=== PATIENT | female | born 1975 | race Caucasian/White ===

== ENCOUNTER 2016-06-16 11:05 | Emergency (ER) | payer BC ==
[~2016-06-16] VITALS: Wt 54.0 kg
[~2016-06-16 11:05] MED LIST: DIAZ-90 PO; NAPR-260 PO
--- NOTE | 2016-06-16 13:07 | ERA ---
ER Documentation Chief Complaint Date/Time DATE: 06/16/16 TIME: 13:07 Chief Complaint HEADACHE NAUSEA AND VOMITING SINCE LAST NIGHT. NO NEURO DEFICIT HPI The patient is a 41-year-old female, presenting to the ER because of abdominal pain, 8, localized at the left upper quadrant, associated with nausea and vomiting. She recently finished antibiotic for acute cystitis. She also complains of intermittent headache for the last 2 days that was relieved with Excedrin. He denies fever, chills, neck pain, chest pain, dyspnea, diarrhea or constipation. She complains of cough and intermittent dyspnea and dizziness from the cough ; she does not smoke nor drink Past medical history: None Past surgical history: 2 ROS All systems reviewed and are negative except as per history of present illness. Medications Home Meds Active Scripts Tramadol HCl (Tramadol HCl) 50 Mg Tablet, 50 MG PO Q6 Y for PAIN, #20 TAB Prov:CHERI CHAVEZ MD 06/16/16 Hydrocodone/Acetaminophen ([place] 5-325 Tablet) 1 Each Tablet, 1 TAB PO Q6H Y for PAIN, #7 TAB Prov:CHERI CHAVEZ MD 06/16/16 Ondansetron (Ondansetron Odt) 4 Mg Tab.rapdis, 4 MG PO Q6H Y for NAUSEA AND/OR VOMITING, #10 TAB Prov:CHERI CHAVEZ MD 06/16/16 Naproxen* (Naprosyn*) 500 Mg Tablet, 500 MG PO BID Y for PAIN AND/OR INFLAMMATION, #30 TAB Prov:ELEUTERIO MATHEW PA-C 01/24/16 Diazepam* (Valium*) 5 Mg Tablet, 5 MG PO Q8, #10 TAB Prov:ELEUTERIO MATHEW PA-C 01/24/16 Allergies Allergies: Coded Allergies: codeine (Verified Allergy, Unknown, 06/16/16) PMhx/Soc History of Surgery: No Anesthesia Reaction: No Hx Neurological Disorder: No Hx Respiratory Disorders: No Hx Cardiac Disorders: No Hx Psychiatric Problems: No Hx Miscellaneous Medical Probl: No Hx Alcohol Use: No Hx Substance Use: No Hx Tobacco Use: No Physical Exam Vitals Vital Signs Date Time Temp Pulse Resp B/P Pulse Ox O2 Delivery O2 Flow Rate FiO2 06/16/16 11:09 98.7 88 20 120/61 98 Physical Exam Const: No acute distress. Head: Atraumatic. Eyes: Normal Conjunctiva. ENT: Normal External Ears, Nose and Mouth. Neck: Full range of motion. No meningismus. Resp: Clear to auscultation bilaterally. Cardio: Regular rate and rhythm, no murmurs. Abd: Soft, non distended, normal bowel sounds, mild left upper quadrant tenderness, no right lower quadrant, right upper quadrant, CVA tenderness, rigidity, rebound tenderness Skin: No petechiae or rashes. Back: No midline or flank tenderness. Ext: No cyanosis, or edema. Neur: Awake and alert. No focal deficit Psych: Normal Mood and Affect. Result Diagram: 06/16/16 1350 06/16/16 1350 Results 24 hrs Laboratory Tests Test 06/16/16 13:50 06/16/16 13:58 Alanine Aminotransferase (ALT/SGPT) 29IU/L Albumin 4.4g/dl Albumin/Globulin Ratio 1.37 Alkaline Phosphatase 81IU/L Anion Gap 18 Aspartate Amino Transf (AST/SGOT) 29IU/L Basophils # 0.010^3/ul Basophils % 0.6% Blood Morphology Comment Blood Urea Nitrogen 12mg/dl Calcium Level 9.5mg/dl Carbon Dioxide Level 27mmol/L Chloride Level 104mmol/L Creatinine 0.60mg/dl Direct Bilirubin 0.00mg/dl Eosinophils # 0.410^3/ul Eosinophils % 5.9% Globulin 3.20g/dl Glucose Level 98mg/dl Hematocrit 35.4% Hemoglobin 12.0g/dl Indirect Bilirubin 0.3mg/dl Lipase 124U/L Lymphocytes # 1.410^3/ul Lymphocytes % 21.3% Mean Corpuscular Hemoglobin 28.6pg Mean Corpuscular Hemoglobin Concent 33.8g/dl Mean Corpuscular Volume 84.4fl Mean Platelet Volume 8.6fl Monocytes # 1.010^3/ul Monocytes % 15.0% Neutrophils # 3.810^3/ul Neutrophils % 57.2% Nucleated Red Blood Cells # 0.010^3/ul Nucleated Red Blood Cells % 0.0/100WBC Platelet Count 92093^3/UL Potassium Level 4.3mmol/L Red Blood Count 4.1910^6/ul Red Cell Distribution Width 15.7% Sodium Level 145mmol/L Total Bilirubin 0.3mg/dl Total Protein 7.6g/dl White Blood Count 6.710^3/ul Bedside Urine Blood Negative Bedside Urine Glucose (UA) Negative Bedside Urine Ketones (LAB) Negative Bedside Urine Leukocyte Esterase (L Negative Bedside Urine Nitrite (LAB) Negative Bedside Urine Protein (LAB) Negative Bedside Urine pH (LAB) 7.0 Current Medications Medications (Trade) Dose Ordered Sig/Siri Route PRN Reason Start Time Stop Time Status Last Admin Dose Admin Sodium Chloride (NS) 1,000 ml @ 1,000 mls/hr Q1H STAT IV 06/16/16 13:30 06/16/16 14:29 DC 06/16/16 14:11 Morphine Sulfate (morphine) 2 mg ONCE STAT IV 06/16/16 13:30 06/16/16 15:20 DC Ondansetron HCl (Zofran Inj) 4 mg ONCE STAT IV 06/16/16 13:30 06/16/16 13:33 DC 06/16/16 14:11 Ketorolac Tromethamine (Toradol) 30 mg ONCE STAT IV 06/16/16 15:19 06/16/16 15:20 UNV Procedures/[place] [address] Radiology Main Line: [phone] DIAGNOSTIC IMAGING REPORT Patient: GAVIN AVITIA : 1975 Age: 41 Sex: F MR #: [id number] DOS: 06/16/16 1330 Ordering MD: CHERI CHAVEZ MD Location: [facility] Room/Bed: PROCEDURE: XR Chest 1 View. CLINICAL INDICATION: Abnormal breath sounds, abdominal pain TECHNIQUE: AP view of the chest were obtained. COMPARISON: March 12, 2012 FINDINGS: The cardiomediastinal silhouette is within normal limits. The lungs are hyperexpanded. Atelectasis is noted at the lung bases. No consolidations are identified. No pneumothorax is seen. Osseous structures are intact. IMPRESSION: Hyperexpanded lungs. Minimal atelectasis at the lung bases. RPTAT: AA .Ion Garces MD, MD Date Time Electronically viewed and signed by .Ion Garces MD, MD on 06/16/2016 13:54 .P/ CC: CHERI CHAVEZ MD MEDICAL MAKING DECISION: The patient is an 41-year-old female, presenting acute abdominal pain of unclear etiology. She was treated with 1 L normal saline for clinical dehydration, Toradol 30 mg IV for pain, Zofran 4 mg IV for nausea with good response. The differential diagnoses considered include but are not limited to cholelithiasis, cholecystitis, cystitis, pancreatitis, hepatitis, gastritis, peptic ulcer disease, gastric ulcer, appendicitis, diverticulitis, cholangitis, choledocholithiasis, partial small bowel obstruction. Departure Diagnosis: Primary Impression: Abdominal pain Condition: Good Comments She was discharged with Zofran ODT, Ultram I discussed the findings with the patient. I advised the patient to return in 6- 8 hours for reevaluation, sooner if needed CHERI CHAVEZ MD Jun 16, 2016 13:07
[2016-06-16] MEDS ORDERED: morphine 2 MG INJ IV STA (13:30)
[2016-06-16] MEDS ORDERED: SOD CHLORIDE 0.9% 1,000 ML IV STA (13:30)
[2016-06-16] MEDS ORDERED: ONDANSETRON 4 MG INJ IV STA (13:30)
--- NOTE | 2016-06-16 13:54 | RADRPT ---
PROCEDURE: XR Chest 1 View. CLINICAL INDICATION: Abnormal breath sounds, abdominal pain TECHNIQUE: AP view of the chest were obtained. COMPARISON: March 12, 2012 FINDINGS: The cardiomediastinal silhouette is within normal limits. The lungs are hyperexpanded. Atelectasis is noted at the lung bases. No consolidations are identified. No pneumothorax is seen. Osseous str uctures are intact. IMPRESSION: Hyperexpanded lungs. Minimal atelectasis at the lung bases. RPTAT: AA .Ion Garces MD, Date Time Electronically viewed and signed by .Ion Garces MD, on 06/16/2016 13:54 .P/
[2016-06-16 13:56] LABS: URINE BLOOD (Dip) POC Negative (NEGATIVE)
[2016-06-16 14:13] LABS: BASOPHILS % 0.6 % (0.0-2.0); EOSINOPHILS # 0.4 10^3/ul (0.0-0.5); EOSINOPHILS % 5.9 % (0.0-7.0); HEMATOCRIT 35.4 % (37.0-47.0); LYMPHOCYTES # 1.4 10^3/ul (0.8-2.9); LYMPHOCYTES % 21.3 % (15.0-51.0); MEAN CORPUSCULAR HEMOGLOBIN 28.6 pg (29.0-33.0); MEAN CORPUSCULAR HGB CONC 33.8 g/dl (32.0-37.0); MEAN CORPUSCULAR VOLUME 84.4 fl (82.0-101.0); MEAN PLATELET VOLUME 8.6 fl (7.4-10.4); NEUTROPHIL # 3.8 10^3/ul (1.6-7.5); NEUTROPHILS % 57.2 % (39.0-77.0); PLATELET COUNT 328 10^3/UL (140-440); RED BLOOD COUNT 4.19 10^6/ul (4.20-5.40); RED CELL DISTRIBUTION WIDTH 15.7 % (11.5-14.5); UNCORRECTED WBC 6.7 10^3/ul (4.8-10.8); WHITE BLOOD COUNT 6.7 10^3/ul (4.8-10.8)
[2016-06-16 14:28] LABS: ALBUMIN 4.4 g/dl (3.3-4.9)
[2016-06-16 14:29] LABS: POTASSIUM 4.3 mmol/L (3.5-5.1)
[2016-06-16 14:31] LABS: ALBUMIN/GLOBULIN RATIO 1.37; BILIRUBIN,INDIRECT 0.3 mg/dl (0-1.1); BILIRUBIN,TOTAL 0.3 mg/dl (0.2-1.3); CREATININE 0.6 mg/dl (0.44-1.00); TOTAL PROTEIN 7.6 g/dl (6.1-8.1)
[2016-06-16 14:32] LABS: CALCIUM 9.5 mg/dl (8.4-10.2)
[2016-06-16 14:34] LABS: CONDITION 1; LH ANALYZER COMMENTS 1
[2016-06-16] MEDS ORDERED: HYDR-906 PO (15:14)
[2016-06-16] MEDS ORDERED: ONDA4TAB14 PO (15:14)
[2016-06-16] MEDS ORDERED: TRAM50TA2 PO (15:15)
[2016-06-16] MEDS ORDERED: KETOROLAC 30 MG INJ IV STA (15:19)
== END 2016-06-16 15:31 | disposition home or self-care (01) ==
LOC: FTE 11:05
DX: R10.12 Left upper quadrant pain (principal); R11.2 Nausea with vomiting, unspecified
CPT/HCPCS: 36415; 71010; 80053; 81003; 83690; 85025; 96374; 96375; 99284; J1885; J2405; J7030; J2270

== ENCOUNTER 2016-12-02 17:51 | Emergency (ER) | payer BC ==
[~2016-12-02] VITALS: Ht 165.1 cm; Wt 55.0 kg
[~2016-12-02 17:51] MED LIST changes: +HYDR-906 PO; +ONDA4TAB14 PO; +TRAM50TA2 PO
[2016-12-02 17:55] VITALS: Ht 165.1 cm; Wt 55.0 kg
[2016-12-02] MEDS ORDERED: ONDANSETRON (ODT) 4 MG TAB ODT STA (19:43)
[2016-12-02] MEDS ORDERED: LIDOCAINE/MYLANTA 40 ML BTL PO ONE (20:00)
[2016-12-02] MEDS ORDERED: FAMOTIDINE 20 MG TAB PO ONE (20:00)
[2016-12-02] MEDS ORDERED: HYDROCODONE/APAP (5/325) TAB PO ONE (20:00)
[2016-12-02 20:21] LABS: BASOPHIL # 0.1 10^3/ul (0.0-0.1); BASOPHILS % 0.7 % (0.0-2.0); EOSINOPHILS # 0.4 10^3/ul (0.0-0.5); EOSINOPHILS % 3.8 % (0.0-7.0); HEMATOCRIT 35.1 % (37.0-47.0); HEMOGLOBIN 11.5 g/dl (12.0-16.0); LYMPHOCYTES # 2.2 10^3/ul (0.8-2.9); LYMPHOCYTES % 23.6 % (15.0-51.0); MEAN CORPUSCULAR HEMOGLOBIN 28.2 pg (29.0-33.0); MEAN CORPUSCULAR HGB CONC 32.8 g/dl (32.0-37.0); MEAN PLATELET VOLUME 10.3 fl (7.4-10.4); MONOCYTE # 0.8 10^3/ul (0.3-0.9); NEUTROPHIL # 5.7 10^3/ul (1.6-7.5); NEUTROPHILS % 62.7 % (39.0-77.0); PLATELET COUNT 334 10^3/UL (140-415); RED BLOOD COUNT 4.08 10^6/ul (4.20-5.40); RED CELL DISTRIBUTION WIDTH 14.4 % (11.5-14.5); WHITE BLOOD COUNT 9.2 10^3/ul (4.8-10.8)
[2016-12-02 20:51] LABS: INR 1.02; PROTIME 13.4 Sec (12.2-14.2)
[2016-12-02 20:52] LABS: PARTIAL THROMBOPLASTIN TIME 30.7 Sec (25.0-35.0)
[2016-12-02 20:56] LABS: ANION GAP 21 (8-16); BLOOD UREA NITROGEN 14 mg/dl (7-20); CALCIUM 9.3 mg/dl (8.4-10.2); CARBON DIOXIDE 25 mmol/L (21-31); CHLORIDE 101 mmol/L (97-110); CREATININE 0.64 mg/dl (0.44-1.00); GLUCOSE 109 mg/dl (70-220); POTASSIUM 4.1 mmol/L (3.5-5.1); SODIUM 143 mmol/L (135-144)
--- NOTE | 2016-12-02 21:06 | RADRPT ---
PROCEDURE: XR Chest AP portable CLINICAL INDICATION: Chest pain TECHNIQUE: An AP portable radiograph of the chest was submitted. COMPARISON: 06/16/2016 FINDINGS: Support Hardware: None Cardiovascular: The cardiovascular silhouette appears unremarkable. Lung Power: The lung power appear clear with no nodule, alveolar infiltrate, or interstitial promi nence evident. Pleural Spaces: No pneumothorax or pleural effusion is identified. Osseous Structures: The osseous structures appear intact. Soft Tissues: The soft tissues appear unremarkable. IMPRESSION: Stable and unremarkable portable chest. Physician Aiyana Date Time Electronically viewed and signed by Vika Salazar Physician on 12/02/2016 21:05 /
[2016-12-02 21:07] LABS: TROPONIN-I < 0.012 ng/ml (0.00-0.12)
[2016-12-02] MEDS ORDERED: OMEP20CA16 PO (21:14)
[2016-12-02] MEDS ORDERED: RANI150T9 PO (21:15)
--- NOTE | 2016-12-02 23:12 | ERD ---
ER Documentation Chief Complaint Date/Time DATE: 12/02/16 TIME: 23:07 Chief Complaint upper epi pain x 1 day HPI This patient is a 41-year-old female presenting to the emergency department with complaints of right-sided chest pain with radiation to her right arm which began 1 day ago. Symptoms are exacerbated with swallowing. She denies alleviating symptoms. Symptoms are intermittent and she rates them an 8 out of 10 on the pain scale. She denies her chest pain being worse with exertion. Associated symptoms include headache. She does have past medical history of GERD and she has been recently taking omeprazole for the past 7 days. She initially had relief with the omeprazole but now symptoms are worse. She denies vomiting, diarrhea, shortness of breath, dizziness, urinary symptoms, or other symptoms currently. ROS All systems reviewed and are negative except as per history of present illness. Medications Home Meds Active Scripts Ranitidine Hcl* (Zantac*) 150 Mg Tablet, 150 MG PO BID Y for EPIGASTRIC PAIN, # 30 TAB Prov:LIZBET DIAZ PA-C 12/02/16 Omeprazole* (Omeprazole*) 20 Mg Capsule.dr, 20 MG PO DAILY, #30 Prov:LIZBET DIAZ PA-C 12/02/16 Tramadol HCl (Tramadol HCl) 50 Mg Tablet, 50 MG PO Q6 Y for PAIN, #20 TAB Prov:CHERI CHAVEZ MD 06/16/16 Hydrocodone/Acetaminophen ([place] 5-325 Tablet) 1 Each Tablet, 1 TAB PO Q6H Y for PAIN, #7 TAB Prov:CHERI CHAVEZ MD 06/16/16 Ondansetron (Ondansetron Odt) 4 Mg Tab.rapdis, 4 MG PO Q6H Y for NAUSEA AND/OR VOMITING, #10 TAB Prov:CHERI CHAVEZ MD 06/16/16 Naproxen* (Naprosyn*) 500 Mg Tablet, 500 MG PO BID Y for PAIN AND/OR INFLAMMATION, #30 TAB Prov:ELEUTERIO MATHEW PA-C 01/24/16 Diazepam* (Valium*) 5 Mg Tablet, 5 MG PO Q8, #10 TAB Prov:ELEUTERIO MATHEW PA-C 01/24/16 Allergies Allergies: Coded Allergies: codeine (Verified Allergy, Unknown, 12/02/16) PMhx/Soc Medical and Surgical Hx: pt denies Medical Hx, pt denies Surgical Hx History of Surgery: No Anesthesia Reaction: No Hx Neurological Disorder: No Hx Respiratory Disorders: No Hx Cardiac Disorders: No Hx Psychiatric Problems: No Hx Miscellaneous Medical Probl: No Hx Alcohol Use: No Hx Substance Use: No Hx Tobacco Use: No Smoking Status: Never smoker Physical Exam Vitals Vital Signs Date Time Temp Pulse Resp B/P Pulse Ox O2 Delivery O2 Flow Rate FiO2 12/02/16 17:55 98.1 63 18 106/67 99 Physical Exam Const: Nontoxic, well-appearing female in no acute distress. Head: Atraumatic Eyes: Normal Conjunctiva ENT: Normal External Ears, Nose and Mouth. Neck: Full range of motion..~ No meningismus. Resp: Clear to auscultation bilaterally Cardio: Regular rate and rhythm, no murmurs Chest: The patient does have some right-sided chest wall tenderness to palpation. Abd: Soft, non tender, non distended. Normal bowel sounds Skin: No petechiae or rashes Back: No midline or flank tenderness Ext: No cyanosis, or edema Neur: Awake and alert Psych: Normal Mood and Affect Result Diagram: 12/02/16200412/02/162004 Results 24 hrs Laboratory Tests Test 12/02/16 20:05 White Blood Count 9.210^3/ul Red Blood Count 4.0810^6/ul Hemoglobin 11.5g/dl Hematocrit 35.1% Mean Corpuscular Volume 86.0fl Mean Corpuscular Hemoglobin 28.2pg Mean Corpuscular Hemoglobin Concent 32.8g/dl Red Cell Distribution Width 14.4% Platelet Count 00450^3/UL Mean Platelet Volume 10.3fl Neutrophils % 62.7% Lymphocytes % 23.6% Monocytes % 9.0% Eosinophils % 3.8% Basophils % 0.7% Nucleated Red Blood Cells % 0.0/100WBC Neutrophils # 5.710^3/ul Lymphocytes # 2.210^3/ul Monocytes # 0.810^3/ul Eosinophils # 0.410^3/ul Basophils # 0.110^3/ul Nucleated Red Blood Cells # 0.010^3/ul Prothrombin Time 13.4Sec Prothrombin Time Ratio 1.0 INR International Normalized Ratio 1.02 Activated Partial Thromboplast Time 30.7Sec Sodium Level 143mmol/L Potassium Level 4.1mmol/L Chloride Level 101mmol/L Carbon Dioxide Level 25mmol/L Anion Gap 21 Blood Urea Nitrogen 14mg/dl Creatinine 0.64mg/dl Glucose Level 109mg/dl Calcium Level 9.3mg/dl Troponin I < 0.012ng/ml Current Medications Medications (Trade) Dose Ordered Sig/Siri Route PRN Reason Start Time Stop Time Status Last Admin Dose Admin Ondansetron HCl (Zofran Odt) 4 mg ONCE STAT ODT 12/02/16 19:43 12/02/16 19:46 DC 12/02/16 20:27 Acetaminophen/ Hydrocodone Bitart ([place] (5/325)) 1 tab ONCE ONCE PO 12/02/16 20:00 12/02/16 20:01 DC 12/02/16 20:27 Miscellaneous Medication (Gi Cocktail (2)) 40 ml ONCE ONCE PO 12/02/16 20:00 12/02/16 20:01 DC 12/02/16 20:26 Famotidine (Pepcid) 20 mg ONCE ONCE PO 12/02/16 20:00 12/02/16 20:01 DC 12/02/16 20:27 Procedures/MDM EMERGENCY DEPARTMENT COURSE / MEDICAL DECISION MAKING: This is a 41-year-old female who comes to the emergency room secondary to complaints of epigastric pain and headache. The patient was given p.o. Zofran, p.o. [place], p.o. GI cocktail, p.o. Pepcid in the department. On re-evaluation, the patient was feeling improved. Lab results reviewed. CBC: Slight anemia, but not significant Chemistry: Within normal limits Troponin: Within normal limits EKG: Interpreted by ED physician, Dr. Mane Gipson Rate/Rhythm: Sinus bradycardia with a rate of 55 bpm. QRS, ST, T-waves: No changes consistent w/ acute ischemia Impression: No evidence of ischemia or arrhythmia Radiology: [place] [address] Radiology Main Line: [phone] DIAGNOSTIC IMAGING REPORT Patient: GAVIN AVITIA : 1975 Age: 41 Sex: F MR #: [id number] DOS: 12/02/16 194 Ordering MD: LIZBET DIAZ PA-C Location: [facility] Room/Bed: PROCEDURE: XR Chest AP portable CLINICAL INDICATION: Chest pain TECHNIQUE: An AP portable radiograph of the chest was submitted. COMPARISON: 06/16/2016 FINDINGS: Support Hardware: None Cardiovascular: The cardiovascular silhouette appears unremarkable. Lung Coreas: The lung coreas appear clear with no nodule, alveolar infiltrate, or interstitial prominence evident. Pleural Spaces: No pneumothorax or pleural effusion is identified. Osseous Structures: The osseous structures appear intact. Soft Tissues: The soft tissues appear unremarkable. IMPRESSION: Stable and unremarkable portable chest. Physician Aiyana Date Time Electronically viewed and signed by Physician Aiyana on 12/02/2016 21:05 RH/ CC: LIZBET DIAZ PA-C The primary diagnosis is epigastric pain with unclear etiology: May be secondary to GERD. I have low suspicion for aortic dissection, acute coronary syndrome, pulmonary embolism, pneumothorax, sepsis, or other emergent conditions at this time. Discharge: I have discussed the lab results and diagnostic findings with the patient and answered any questions or concerns. The patient was discharged with a prescription for ranitidine and omeprazole. The patient was advised to followup with their PMD in 1-2 days and to return to the Emergency Department if there are any new or worsening symptoms. The patient understood and agreed with the diagnosis, treatment and plan. The patient is stable for discharge at this time. Departure Diagnosis: Primary Impression: Epigastric pain Condition: Fair Patient Instructions: Gerd (Adult), Epigastric Pain (Uncertain Cause) Referrals: MARYLOU CAMP (PCP) Additional Instructions: No mas mejor en 2-3 braun, regresar. Mas peor en 24 horas, regresear rapidamente. Ir a doctor primario in 5-7 braun. Usar instrucciones cuando marnie medicamento. LIZBET DIAZ PA-C Dec 02, 2016 23:12
== END 2016-12-02 21:26 | disposition home or self-care (01) ==
LOC: FTE 17:51
DX: R10.13 Epigastric pain (principal)
CPT/HCPCS: 71010; 80048; 84484; 85025; 85610; 85730; 93005